=== PATIENT | male | born 1960 | race Caucasian/White ===

== ENCOUNTER 2018-06-15 20:35 | Emergency (ER) | payer OTHER, BC ==
--- NOTE | 2018-06-15 22:25 | ER Document Report ---
ED Medical Screen (RME) - General Chief Complaint: Neck Pain >24hrs old Stated Complaint: LEFT NECK AND SHOULDER PAIN Time Seen by Provider: 06/15/18 22:23 Mode of Arrival: Ambulatory Information source: Patient Notes: 57-year-old male presented ED for complaint of pain to his left neck shoulder radiating down his left arm. He states he injured his shoulder on June 08 has been to his primary care doctor who put him on hydrocodone and Valium. He states he took his hydrocodone last at 3 PM and his volume lasted 3 PM. He is on chronic pain management of tramadol. He states his primary care is also put him on prednisone. Patient and states that the pain is getting much worse and that he thinks he needs a MRI. He states he has a previous torn rotator cuff on this side that was surgically repaired but they were not able to repair some of the muscles that were performed. He is favoring the shoulder is not moving the shoulder a lot. Patient is alert and oriented respirations regular and unlabored speaking with full sentences and walk with a even steady gait. I have greeted and performed a rapid initial assessment of this patient. A comprehensive ED assessment and evaluation of the patient, analysis of test results and completion of medical decision making process will be conducted by an additional ED providers. TRAVEL OUTSIDE OF THE [place] IN LAST 30 DAYS: No - Related Data Allergies/Adverse Reactions: morphine Adverse Reaction (Verified 06/15/18 20:37) Physical Exam - Vital signs Vitals: Temp Pulse Resp BP Pulse Ox 97.7 F 81 20 157/84 H 95 06/15/18 21:00 06/15/18 21:00 06/15/18 21:00 06/15/18 21:00 06/15/18 21:00 Course - Vital Signs Vital signs: Temp Pulse Resp BP Pulse Ox 97.7 F 81 20 157/84 H 95 06/15/18 21:00 06/15/18 21:00 06/15/18 21:00 06/15/18 21:00 06/15/18 21:00
[2018-06-16] MEDS ORDERED: LIDOCAINE 5% (700 MG) TRANSDERMAL ADH..PATCH TP ONE (01:44)
[2018-06-16] MEDS ORDERED: KETOROLAC TROMETHAMINE 60 MG/2 ML SDV IM ONE (01:44)
[2018-06-16] MEDS ORDERED: FENTANYL CITRATE INJ/PF 100 MCG/2 ML AMPUL IM ONE (01:44)
--- NOTE | 2018-06-16 01:51 | ER Document Report ---
ED General - General Chief Complaint: Neck Pain >24hrs old Stated Complaint: LEFT NECK AND SHOULDER PAIN Time Seen by Provider: 06/15/18 22:23 Mode of Arrival: Ambulatory Notes: Patient is a 57 year old male who presents with approximately 4-5 days of left shoulder pain and left neck pain. He describes the pain as being a severe, constant, throbbing pain to his left trapezius, left shoulder radiating shooting , shocking pain down his left upper extremity. The patient reports that these symptoms started gradually and have been worsening since that time. He was seen by his primary care doctor, started on steroids, Valium and [place] and notes that this has not provided any relief. He has a history of a prior partial rotator cuff tear with associated surgery in the past to the left shoulder. He is not yet scheduled to see an orthopedic surgeon. Nothing is new or different about his pain today that prompted a visit to the emergency department other than that it was so intense he could not sleep. He notes that he has had paresthesias of his left upper extremity but no associated loss of sensation or weakness. TRAVEL OUTSIDE OF THE [place] IN LAST 30 DAYS: No - Related Data Allergies/Adverse Reactions: morphine Adverse Reaction (Verified 06/15/18 20:37) Past Medical History - General Information source: Patient - Social History Smoking Status: Never Smoker Frequency of alcohol use: None Drug Abuse: None Lives with: Spouse/Significant other Family History: Reviewed & Not Pertinent Patient has suicidal ideation: No Patient has homicidal ideation: No Renal/ Medical History: Denies: Hx Peritoneal Dialysis Review of Systems - Review of Systems Notes: Constitutional: Negative for fever. HENT: Negative for sore throat. Eyes: Negative for visual changes. Cardiovascular: Negative for chest pain. Respiratory: Negative for shortness of breath. Gastrointestinal: Negative for abdominal pain, vomiting or diarrhea. Genitourinary: Negative for dysuria. Musculoskeletal: Positive for left shoulder pain and left neck pain Skin: Negative for rash. Neurological: Negative for headaches, positive for paresthesias of the left upper extremity 10 point ROS negative except as marked above and in HPI. Physical Exam - Vital signs Vitals: Temp Pulse Resp BP Pulse Ox 97.7 F 81 20 157/84 H 95 06/15/18 21:00 06/15/18 21:00 06/15/18 21:00 06/15/18 21:00 06/15/18 21:00 Interpretation: Hypertensive Notes: PHYSICAL EXAMINATION: GENERAL: Appears uncomfortable but in no acute distress HEAD: Atraumatic, normocephalic. EYES: Pupils equal round and reactive to light, extraocular movements intact, sclera anicteric, conjunctiva are normal. ENT: nares patent, oropharynx clear without exudates. Moderately dry mucous membranes. NECK: Normal range of motion, supple without lymphadenopathy LUNGS: Breath sounds clear to auscultation bilaterally and equal. No wheezes rales or rhonchi. HEART: Regular rate and rhythm without murmurs ABDOMEN: Soft, nontender, normoactive bowel sounds. No guarding, no rebound. No masses appreciated. EXTREMITIES: Unable to abduct the arm past 45 on the left. No pitting or edema. No cyanosis. No deformity or swelling to the left shoulder NEUROLOGICAL: No focal neurological deficits. Moves all extremities spontaneously and on command. RMU motor and sensory distribution intact bilaterally PSYCH: Normal mood, normal affect. SKIN: Warm, Dry, normal turgor, no rashes or lesions noted. Course - Re-evaluation Re-evalutation: 06/16/18 01:50 Patient presents with 4 days of severe left shoulder pain with radicular symptoms of the left upper extremity. Clinical history and exam are most consistent with likely rotator cuff injury with an associated inflammation of the brachial plexus. RMU motor and sensory distribution are intact. No midline cervical spine tenderness, step-offs or deformities and no new injury to the cervical spine. Patient is here because his pain is so severe that he cannot sleep. I have emphasized with the patient that he needs to follow-up with orthopedic surgery for further definitive management. He has been started on gabapentin for pain control as well as limited number of oxycodone as he apparently has a severe allergy to morphine and is already on NSAID therapy. At this time will discharge with return precautions and follow-up recommendations. Verbal discharge instructions given a the bedside and opportunity for questions given. Medication warnings reviewed. Patient is in agreement with this plan and has verbalized understanding of return precautions and the need for primary care follow-up in the next 24-72 hours. - Vital Signs Vital signs: Temp Pulse Resp BP Pulse Ox 98.5 F 88 17 148/72 H 98 06/16/18 02:19 06/16/18 02:19 06/16/18 02:19 06/16/18 02:19 06/16/18 02:19 Discharge - Discharge Clinical Impression: Neck pain on left side Left shoulder pain Qualifiers: Chronicity: acute Qualified Code(s): M25.512 - Pain in left shoulder Condition: Good Disposition: HOME, SELF-CARE Additional Instructions: Your symptoms are most consistent with a ligamentous injury of you left shoulder versus a cervical nerve root impingement. Take Tylenol 1000 mg every 6 hours. Take gabapentin 300 mg 3 times daily. Use the oxycodone for pain not controlled by these measures. Please follow-up with the orthopedic doctor at your earliest ability for further evaluation of this ongoing pain. Return here if you develop worsening pain, fever greater than 100.4F, develop chest pain, pass out, or have any other symptoms that are worrisome to you. Prescriptions: Oxycodone HCl [Oxycontin Ir 5 Mg Tablet] 1 tab PO Q6HP PRN #10 tablet PRN Reason: For Pain Gabapentin 300 mg PO TID #90 capsule Referrals: DANITA MARTINEZ MD [Primary Care Provider] - Follow up as needed
[2018-06-16 02:20] VITALS: BP 148/72
== END 2018-06-16 02:20 | disposition home or self-care (01) ==
LOC: ER 20:35
DX: M54.2 Cervicalgia (principal); M25.512 Pain in left shoulder; Z88.6 Allergy status to analgesic agent
CPT/HCPCS: 99283; 96372; J1885; J3010

== ENCOUNTER → 2018-06-27 | Outpatient (CLI) | payer BC, OTHER ==
--- NOTE | 2018-06-28 09:03 | RADIOLOGY REPORT (SQ) ---
EXAM DESCRIPTION: MRI LT UPPER JOINT WITHOUT COMPLETED DATE/TIME: 06/27/2018 9:03 pm REASON FOR STUDY: M25.512 PAIN IN LEFT SHOULDER M25.512 PAIN IN LEFT SHOULDER COMPARISON: MRI brachials plexus same date TECHNIQUE: Left shoulder images acquired and stored on PACS. Multiplanar imaging to include fat sens itive sequences such as T1, water sensitive sequences such as FST2/STIR, cartilage sensitive sequence s such as FSPD/gradient-echo sequences. LIMITATIONS: None. FINDINGS: BONE MARROW AND CORTEX: Few small subcortical cysts are present along the left humeral hea d greater tuberosity. No marrow signal abnormalities worrisome for occult fracture or aggressive mar row replacement process JOINT OR BURSAL EFFUSION: No glenohumeral joint effusion. Trace fluid in the subacromial/subdeltoid bursa GLENO-HUMERAL ARTICULATION: There is minimal ferromagnetic artifact from remote prior surgery on grad ient echo images. Articular cartilage mildly band. No bulky bony spurring at the glenohumeral joint ACROMION AND AC JOINT: Type 1 acromion with moderate acromioclavicular joint hypertrophy and bony sp urring, very mild narrowing of the subacromial space. Trace subacromial/subdeltoid bursal fluid. ROTATOR CUFF AND INTERVAL: Mild tendinopathy of the distal supra and infraspinatus tendons at the gre ater tuberosity attachment. Subscapularis is intact. Rotator interval grossly intact. No rotator interval tear. No rotator interval thickening to suggest adhesive capsulitis. LABRUM AND BICEPS LABRAL COMPLEX: Intra-articular long head biceps tendon is normal thickness, mild increased signal from tendinopathy. There is high signal along the superior labrum and anterior lab rum likely from superior labral tear at the long head biceps tendon insertion. No paralabral cysts a re present. REMAINDER OF LABRUM AND IGHL : No gross tear or paralabral cyst formation. Labral evaluation is less than optimal without joint distention. No thickening of IGHL to suggest adhesive capsulitis. PERIARTICULAR AND ADJACENT SOFT TISSUES: No masses or abnormal nodes. OTHER: No other significant finding. IMPRESSION: Mild distal supra and infraspinatus tendinopathy at the distal attachment Small superior labral tear extending anteriorly without paralabral cyst Mild acromioclavicular joint hypertrophy TECHNICAL DOCUMENTATION: JOB ID: [id number] [employer]- All Rights Reserved Reading location - IP/workstation name: [email or web address]
--- NOTE | 2018-06-28 13:35 | RADIOLOGY REPORT (SQ) ---
EXAM DESCRIPTION: MRI CHEST COMBO COMPLETED DATE/TIME: 06/27/2018 9:43 pm REASON FOR STUDY: M25.512 M25.512 PAIN IN LEFT SHOULDER COMPARISON: MRI of the left shoulder same date TECHNIQUE: PROCEDURE: T1 pre and post gadolinium, T2 fat sat weight sequences with attention to the brachial plexus. CONTRAST TYPE AND DOSE: 20 mL Prohance. RENAL FUNCTION: GFR > 60. LIMITATIONS: None. FINDINGS: No abnormal enhancement or masses along the cervical cord, cervical nerve roots, or brachi als plexus. No soft tissues masses or adenopathy in the field of view There is degenerative disc change throughout the cervical spine with multilevel disc space loss of he ight and in disc bulging with facet and uncovertebral hypertrophy. At C3-4, moderate bilateral foraminal narrowing is present right greater than left. Broad diffuse po sterior disc bulging causes of at least borderline central canal stenosis. Mild ventral cord flatten ing. At C4-5, minimal bilateral foraminal narrowing from facet and uncovertebral hypertrophy is present. At C5-6, broad diffuse posterior disc bulging right greater than left is present causing borderline c entral canal stenosis, high-grade right and moderate left foraminal narrowing. At C6-7, broad diffuse posterior disc bulge and bony spurring is present without central stenosis. H igh-grade bilateral foraminal narrowing is present. At C7-T1, a small right paracentral disc protrusion/herniation is present. This finding along with b road diffuse posterior disc bulge and facet and ligament hypertrophy causes mild central canal stenos is. High-grade bilateral foraminal narrowing. IMPRESSION: NO EVIDENCE OF BRACHIALS PLEXUS MASS OR IMPINGEMENT. TECHNICAL DOCUMENTATION: JOB ID: [id number] [employer]- All Rights Reserved Reading location - IP/workstation name: [facility] [email or web address]
== END ==
LOC: RAD 20:04
PROVIDERS: ATTEND Internal Medicine
DX: M25.512 Pain in left shoulder (principal); S46.812A Strain of other muscles, fascia and tendons at shoulder and upper arm level, left arm, initial encounter; X58.XXXA Exposure to other specified factors, initial encounter
CPT/HCPCS: 82565; 73221; 71552; A9576

== ENCOUNTER → 2018-09-18 | Day surgery (SDC) | payer BC, OTHER ==
--- NOTE | 2018-09-18 14:58 | RADIOLOGY REPORT (SQ) ---
EXAM DESCRIPTION: ARTHRO SHOULDER INJECTION; FLUORO/NEEDLE PLACEMENT COMPLETED DATE/TIME: 09/18/2018 1:18 pm REASON FOR STUDY: M75.122 COMPLETE ROTATR-CUFF TEAR/RUPTR OF LEFT SHOULDER, NOT TRAUMA M75.122 COMP LETE ROTATR-CUFF TEAR/RUPTR OF LEFT SHOULDER, NO COMPARISON: MRI left shoulder 06/27/2018 FLUOROSCOPY TIME: 9 seconds 2 digital fluoroscopic radiographs images saved to PACS. LIMITATIONS: None. PROCEDURE: Procedure, risks, benefits and alternatives explained to patient who then gave written co nsent. The posterior left shoulder was marked and a time out was called for correct procedure verific ation. Posterior entry site marked using fluoroscopic guidance. Shoulder prepped and draped using s terile technique. Local anesthesia achieved using 1% lidocaine injection. Hypodermic needle introdu julien into the joint space under direct fluoroscopic visualization. Non-ionic contrast instilled to con firm intra-articular position. Dilute gadolinium solution then injected. Needle removed and entry si te covered with sterile bandage. No immediate complications noted. TECHNIQUE: Digital images acquired during fluoroscopy and stored on PACS. Patient immediately take n to the MR suite for additional imaging. INJECTION LOCATION: Posterior left glenohumeral joint CONTRAST TYPE AND AMOUNT: 1 mL of Isovue-300 was injected to confirm intra-articular needle placement , followed by 10 mL of dilute Dotarem/Saline mixture. IMPRESSION: SUCCESSFUL NEEDLE PLACEMENT AND INJECTION FOR LEFT SHOULDER MR ARTHROGRAM USING POSTERIO R APPROACH. COMMENT: Quality ID 145: Final reports for procedures using fluoroscopy that document radiation exp osure indices, or exposure time and number of fluorographic images (if radiation exposure indices are not available) TECHNICAL DOCUMENTATION: JOB ID: [id number] [employer]- All Rights Reserved Reading location - IP/workstation name: [email or web address]
--- NOTE | 2018-09-18 14:58 | RADIOLOGY REPORT (SQ) ---
EXAM DESCRIPTION: ARTHRO SHOULDER INJECTION; FLUORO/NEEDLE PLACEMENT COMPLETED DATE/TIME: 09/18/2018 1:18 pm REASON FOR STUDY: M75.122 COMPLETE ROTATR-CUFF TEAR/RUPTR OF LEFT SHOULDER, NOT TRAUMA M75.122 COMP LETE ROTATR-CUFF TEAR/RUPTR OF LEFT SHOULDER, NO COMPARISON: MRI left shoulder 06/27/2018 FLUOROSCOPY TIME: 9 seconds 2 digital fluoroscopic radiographs images saved to PACS. LIMITATIONS: None. PROCEDURE: Procedure, risks, benefits and alternatives explained to patient who then gave written co nsent. The posterior left shoulder was marked and a time out was called for correct procedure verific ation. Posterior entry site marked using fluoroscopic guidance. Shoulder prepped and draped using s terile technique. Local anesthesia achieved using 1% lidocaine injection. Hypodermic needle introdu julien into the joint space under direct fluoroscopic visualization. Non-ionic contrast instilled to con firm intra-articular position. Dilute gadolinium solution then injected. Needle removed and entry si te covered with sterile bandage. No immediate complications noted. TECHNIQUE: Digital images acquired during fluoroscopy and stored on PACS. Patient immediately take n to the MR suite for additional imaging. INJECTION LOCATION: Posterior left glenohumeral joint CONTRAST TYPE AND AMOUNT: 1 mL of Isovue-300 was injected to confirm intra-articular needle placement , followed by 10 mL of dilute Dotarem/Saline mixture. IMPRESSION: SUCCESSFUL NEEDLE PLACEMENT AND INJECTION FOR LEFT SHOULDER MR ARTHROGRAM USING POSTERIO R APPROACH. COMMENT: Quality ID 145: Final reports for procedures using fluoroscopy that document radiation exp osure indices, or exposure time and number of fluorographic images (if radiation exposure indices are not available) TECHNICAL DOCUMENTATION: JOB ID: [id number] [email or web address]- All Rights Reserved Reading location - IP/workstation name: [email or web address]
--- NOTE | 2018-09-19 12:28 | RADIOLOGY REPORT (SQ) ---
EXAM DESCRIPTION: MRI LT UPPER JOINT WITH COMPLETED DATE/TIME: 09/18/2018 1:52 pm REASON FOR STUDY: M75.122 COMPLETE ROTATR-CUFF TEAR/RUPTR OF LEFT SHOULDER, NOT TRAUMA M75.122 COMP LETE ROTATR-CUFF TEAR/RUPTR OF LEFT SHOULDER, NO COMPARISON: 06/27/2018 left shoulder MRI TECHNIQUE: Left shoulder images acquired and stored on PACS. Oblique coronal, oblique sagittal, and axial imaging to include fat sensitive sequences as T1, water sensitive sequences as FST2/STIR, and c ontrast sensitive sequences as FST1. LIMITATIONS: None. FINDINGS: JOINT DISTENTION: Adequate distention for interpretation. No leakage of intra-articular c ontrast into the subacromial/subdeltoid bursa BONE MARROW AND CORTEX: Small subcortical cysts along the left humeral head greater tuberosity unchan ged. AC JOINT: Type 1 acromion with mild acromioclavicular joint bony spurring and narrowing of the subacr omial space best shown on sagittal image 10. GLENOHUMERAL JOINT: No subluxation or dislocation. No focal chondral defects or reactive bone changes . ROTATOR CUFF: High-grade partial thickness undersurface tear distal supraspinatus tendon at the great er tuberosity attachment best shown on coronal image 11. Tendinopathy distal infraspinatus tendon. Subscapularis is intact. LABRUM AND BICEPS LABRAL COMPLEX: Normal signal in the rotator interval without tear of the superior glenohumeral ligament. Superior labrum, intra-articular long head biceps intact. Distal biceps in no rmal anatomic location in bicipital groove. No paralabral cysts. INFERIOR LABRAL COMPLEX: Bony glenoid and labrum intact. IGHL intact without thickening or tear. No p aralabral cysts. ADJACENT SOFT TISSUES: No masses or nodes. OTHER: No other significant finding. IMPRESSION: No MR evidence of superior labral tear High-grade partial-thickness undersurface tear distal supraspinatus tendon. Mild tendinopathy distal infraspinatus tendon TECHNICAL DOCUMENTATION: JOB ID: [id number] [employer]- All Rights Reserved Reading location - IP/workstation name: [email or web address]
== END ==
LOC: RAD 12:35 → EDSTATUS 13:00
PROVIDERS: ATTEND Orthopaedic Surgery
DX: M75.122 Complete rotator cuff tear or rupture of left shoulder, not specified as traumatic (principal)
CPT/HCPCS: 73222; 77002; 23350; A9576

== ENCOUNTER → 2018-10-22 | Outpatient (CLI) | payer BC, OTHER ==
--- NOTE | 2018-10-22 14:34 | RADIOLOGY REPORT (SQ) ---
EXAM DESCRIPTION: CHEST PA/LATERAL COMPLETED DATE/TIME: 10/22/2018 2:25 pm REASON FOR STUDY: PRE-OP Z01.818 ENCOUNTER FOR OTHER PREPROCEDURAL EXAMINATION COMPARISON: None. NUMBER OF VIEWS: Two view. TECHNIQUE: Frontal and lateral radiographic views of the chest acquired. LIMITATIONS: None. FINDINGS: LUNGS AND PLEURA: Low lung volumes. No opacities, masses or pneumothorax. No pleural eff usion. MEDIASTINUM AND HILAR STRUCTURES: No masses. No contour abnormalities. HEART AND VASCULAR STRUCTURES: Heart normal in size and contour. No evidence for failure. BONES: No acute findings. HARDWARE: None in the chest. OTHER: No other significant finding. IMPRESSION: LOW LUNG VOLUMES. NO SIGNIFICANT RADIOGRAPHIC FINDING IN THE CHEST. TECHNICAL DOCUMENTATION: JOB ID: [id number] [email or web address]- All Rights Reserved Reading location - IP/workstation name: [email or web address]
[2018-10-22 15:18] LABS: ABSOLUTE BASOPHILS # (AUTO) 0.1 10^3/uL (0.0-0.2); ABSOLUTE EOSINOPHILS # (AUTO) 0.1 10^3/uL (0.0-0.6); ABSOLUTE LYMPHOCYTES (AUTO) 1.9 10^3/uL (0.5-4.7); ABSOLUTE MONOCYTES (AUTO) 0.7 10^3/uL (0.1-1.4); ABSOLUTE NEUT (AUTO) 4.1 10^3/uL (1.7-8.2); EOSINOPHILS % (AUTO) 1.4 % (0-6); HEMATOCRIT 44.3 % (37.9-51.0); HEMOGLOBIN 15.3 g/dL (13.5-17.0); LYMPHOCYTES % (AUTO) 27.6 % (13-45); MEAN CORPUSCULAR HEMOGLOBIN 29.9 pg (27.0-33.4); MEAN CORPUSCULAR HGB CONC 34.5 g/dL (32.0-36.0); MEAN CORPUSCULAR VOLUME 87 fl (80-97); MONOCYTES % (AUTO) 10.3 % (3-13); PLATELET COUNT 220 10^3/uL (150-450); RED CELL DISTRIBUTION WIDTH 12.8 % (11.5-14.0); SEGMENTED NEUTROPHILS % (AUTO) 59.7 % (42-78); TOTAL CELLS COUNTED % (AUTO) 100 %; WHITE BLOOD COUNT 6.8 10^3/uL (4.0-10.5)
[2018-10-22 15:39] LABS: ANION GAP 11 (5-19); BLOOD UREA NITROGEN 15 mg/dL (7-20); CALCIUM 9.6 mg/dL (8.4-10.2); CARBON DIOXIDE 28 mmol/L (22-30); CHLORIDE 102 mmol/L (98-107); GLUCOSE 91 mg/dL (75-110); POTASSIUM 4.6 mmol/L (3.6-5.0); SODIUM 141.1 mmol/L (137-145)
--- NOTE | 2018-10-22 18:31 | EKG REPORT ---
SEVERITY:- ABNORMAL ECG - SINUS RHYTHM FIRST DEGREE AVB : Confirmed by: Roosevelt Eastman MD 22-Oct-2018 18:30:43
== END ==
LOC: OD 13:55
PROVIDERS: ATTEND Orthopaedic Surgery
DX: Z01.810 Encounter for preprocedural cardiovascular examination (principal); Z01.812 Encounter for preprocedural laboratory examination; Z01.818 Encounter for other preprocedural examination
CPT/HCPCS: 36415; 71046; 80048; 85025; 93005; 93010

== ENCOUNTER 2019-01-01 01:31 | Emergency (ER) | payer BC, OTHER ==
[2019-01-01 01:51] VITALS: BP 138/76
[2019-01-01 07:25] LABS: ABSOLUTE BASOPHILS # (AUTO) 0.1 10^3/uL (0.0-0.2); ABSOLUTE EOSINOPHILS # (AUTO) 0.1 10^3/uL (0.0-0.6); ABSOLUTE LYMPHOCYTES (AUTO) 1.3 10^3/uL (0.5-4.7); ABSOLUTE MONOCYTES (AUTO) 0.6 10^3/uL (0.1-1.4); ABSOLUTE NEUT (AUTO) 4.3 10^3/uL (1.7-8.2); BASOPHILS % (AUTO) 0.9 % (0-2); EOSINOPHILS % (AUTO) 1.6 % (0-6); HEMATOCRIT 44.9 % (37.9-51.0); HEMOGLOBIN 15.9 g/dL (13.5-17.0); MEAN CORPUSCULAR HGB CONC 35.3 g/dL (32.0-36.0); MEAN CORPUSCULAR VOLUME 85 fl (80-97); MONOCYTES % (AUTO) 9.7 % (3-13); PLATELET COUNT 254 10^3/uL (150-450); RED BLOOD COUNT 5.28 10^6/uL (4.35-5.55); RED CELL DISTRIBUTION WIDTH 13.7 % (11.5-14.0); SEGMENTED NEUTROPHILS % (AUTO) 66.8 % (42-78); TOTAL CELLS COUNTED % (AUTO) 100 %; WHITE BLOOD COUNT 6.4 10^3/uL (4.0-10.5)
[2019-01-01 07:32] LABS: ALANINE AMINOTRANSFERASE 31 U/L (21-72); ALKALINE PHOSPHATASE 93 U/L (38-126); ANION GAP 12 (5-19); ASPARTATE AMINO TRANSFERASE 29 U/L (17-59); BILIRUBIN,DIRECT 0.2 mg/dL (0.0-0.4); BILIRUBIN,TOTAL 0.5 mg/dL (0.2-1.3); BLOOD UREA NITROGEN 13 mg/dL (7-20); CALCIUM 9.7 mg/dL (8.4-10.2); CARBON DIOXIDE 25 mmol/L (22-30); CHLORIDE 106 mmol/L (98-107); GLUCOSE 111 mg/dL (75-110); LIPASE 72.3 U/L (23-300); POTASSIUM 4.8 mmol/L (3.6-5.0); SODIUM 142.8 mmol/L (137-145); TOTAL PROTEIN 7.9 g/dL (6.3-8.2)
[2019-01-01] MEDS ORDERED: NORMAL SALINE 1000 ML 1,000 ML IV ONE (07:45)
[2019-01-01 09:05] LABS: APPEARANCE,URINE CLEAR; BILIRUBIN,URINE NEGATIVE (NEGATIVE); COLOR,URINE YELLOW; GLUCOSE, URINE NEGATIVE (NEGATIVE); KETONES,URINE NEGATIVE (NEGATIVE); LEUKOCYTE ESTERASE,URINE NEGATIVE (NEGATIVE); NITRITE,URINE NEGATIVE (NEGATIVE); PROTEIN,URINE NEGATIVE (NEGATIVE); URINE SPECIFIC GRAVITY 1.015; UROBILINOGEN,URINE NEGATIVE mg/dL (<2.0)
--- NOTE | 2019-01-01 10:20 | RADIOLOGY REPORT (SQ) ---
EXAM DESCRIPTION: CT ABD/PELVIS WITH IV ONLY COMPLETED DATE/TIME: 01/01/2019 10:00 am REASON FOR STUDY: LLQ abd pain COMPARISON: None. TECHNIQUE: CT scan of the abdomen and pelvis performed using helical scanning technique with dynamic intravenous contrast injection. No oral contrast. Images reviewed with lung, soft tissue, and bone windows. Reconstructed coronal and sagittal MPR images reviewed. Delayed images for evaluation of the urinary system also acquired. All images stored on PACS. All CT scanners at this facility use dose modulation, iterative reconstruction, and/or weight based d osing when appropriate to reduce radiation dose to as low as reasonably achievable (ALARA). [facility]: Dose Right [facility]: CareDose [facility]: Dose Right [facility]: Teradose 4D [facility]: [employer] CONTRAST TYPE AND DOSE: contrast/concentration: Isovue 350.00 mg/ml; Total Contrast Delivered: 100.0 ml; Total Saline Delivered: 72.0 ml RENAL FUNCTION: GFR > 60. RADIATION DOSE: CT Rad equipment meets quality standard of care and radiation dose reduction techniq ues were employed. CTDIvol: 18.9 - 20.4 mGy. DLP: 2270 mGy-cm.. LIMITATIONS: None. FINDINGS: LOWER CHEST: No significant findings. No nodules or infiltrates. LIVER: Normal size. No masses. No dilated ducts. SPLEEN: Normal size. No focal lesions. PANCREAS: No masses. No significant calcifications. No adjacent inflammation or peripancreatic fluid collections. Pancreatic duct not dilated. GALLBLADDER: No identified stones by CT criteria. No inflammatory changes to suggest cholecystitis. ADRENAL GLANDS: No significant masses or asymmetry. RIGHT KIDNEY AND URETER: No solid masses. No significant calcifications. No hydronephrosis or hyd roureter. LEFT KIDNEY AND URETER: No solid masses. No significant calcifications. No hydronephrosis or hydr oureter. AORTA AND VESSELS: No aneurysm. No dissection. Renal arteries, SMA, celiac without stenosis. RETROPERITONEUM: No retroperitoneal adenopathy, hemorrhage or masses. BOWEL AND PERITONEAL CAVITY: No masses or inflammatory changes. No free fluid or peritoneal masses. There is scattered colonic diverticulosis with minimal stranding about the proximal sigmoid colon (e. g. series 3, image 49). APPENDIX: Normal. PELVIS: No mass. No free fluid. Normal bladder. ABDOMINAL WALL: No masses. No hernias. BONES: No significant or acute findings. OTHER: No other significant finding. IMPRESSION: There is scattered colonic diverticulosis with minimal stranding about the proximal sigm oid colon, findings which may reflect mild diverticulitis. Follow-up imaging can be considered as in dicated by clinical signs and symptoms to evaluate for interval development. TECHNICAL DOCUMENTATION: JOB ID: [id number] Quality ID # [id number]: Final reports with documentation of one or more dose reduction techniques (e.g., Au tomated exposure control, adjustment of the mA and/or kV according to patient size, use of iterative reconstruction technique) 2010 [employer]- All Rights Reserved Reading location - IP/workstation name: [email or web address]
[2019-01-01] MEDS ORDERED: CIPROFLOXACIN HCL 500 MG TABLET PO ONE (10:49)
[2019-01-01] MEDS ORDERED: METRONIDAZOLE 500 MG TABLET PO ONE (10:49)
--- NOTE | 2019-01-01 14:08 | ER Document Report ---
Entered by RYLAN ARNOLD SCRIBE 01/01/19 0707 Acting as scribe for:JESSICA FANG MD ED GI/ - General Chief Complaint: Abdominal Pain Stated Complaint: ABDOMINAL PAIN/NAUSEA Time Seen by Provider: 01/01/19 06:55 Primary Care Provider: DANITA MARTINEZ MD [Primary Care Provider] - Follow up as needed Information source: Patient Notes: 58-year-old male who presents to the emergency department today with complaints of left lower quadrant abdominal pain. Patient states that his symptoms began around midnight last night and it feels like a "pulled muscle". Patient states he does not believe it is a pulled muscle but that is the "only way he knows how to describe it". Patient states the pain does not radiate into his testicle. Patient denies a history of kidney stones. TRAVEL OUTSIDE OF THE [place] IN LAST 30 DAYS: No - Related Data Allergies/Adverse Reactions: ticagrelor [From Brilinta] Allergy (Verified 01/01/19 01:49) morphine Adverse Reaction (Verified 06/15/18 20:37) Past Medical History - General Information source: Patient - Social History Smoking Status: Former Smoker Cigarette use (# per day): No Frequency of alcohol use: None Drug Abuse: None Lives with: Family Family History: Reviewed & Not Pertinent Patient has suicidal ideation: No Patient has homicidal ideation: No - Past Medical History Cardiac Medical History: Reports: Hx Heart Attack - November 2018, Hx Hypercholesterolemia, Hx Hypertension Endocrine Medical History: Reports: Hx Diabetes Mellitus Type 2 Past Surgical History: Reports: Hx Cardiac Surgery - 2 stents, Other - Left inguinal hernia repair 11/16/2017 Review of Systems - Review of Systems Constitutional: No symptoms reported EENT: No symptoms reported Cardiovascular: No symptoms reported Respiratory: No symptoms reported Gastrointestinal: See HPI, Abdominal pain Genitourinary: No symptoms reported Male Genitourinary: denies: Testicular pain Musculoskeletal: No symptoms reported Skin: No symptoms reported Hematologic/Lymphatic: No symptoms reported Neurological/Psychological: No symptoms reported -: Yes All other systems reviewed and negative Physical Exam - Vital signs Vitals: Temp Pulse Resp BP Pulse Ox 97.6 F 75 16 138/76 H 97 01/01/19 01:47 01/01/19 01:47 01/01/19 01:47 01/01/19 01:47 01/01/19 01:47 - Notes Notes: Physical Exam: General: Alert, appears well. HEENT: Normocephalic. Atraumatic. PERRL. Extraocular movements intact. Oropharynx clear. Neck: Supple. Non-tender. Respiratory: No respiratory distress. Clear and equal breath sounds bilaterally. Cardiovascular: Regular rate and rhythm. Abdominal: Left lower quadrant tenderness with palpation.. No distension. Normal Bowel Sounds. Back: Left CVA tenderness with percussion. No deformity or step off. Extremities: Moves all four extremities. Upper extremities: Normal inspection. Normal ROM. Lower extremities: Normal inspection. No edema. Normal ROM. Neurological: Normal cognition. AAOx4. Normal speech. Psychological: Normal affect. Normal Mood. Skin: Warm. Dry. Normal color. Course - Vital Signs Vital signs: Temp Pulse Resp BP Pulse Ox 97.6 F 75 16 138/76 H 97 01/01/19 01:47 01/01/19 01:47 01/01/19 01:47 01/01/19 01:47 01/01/19 01:47 - Laboratory Result Diagrams: 01/01/19 07:00 01/01/19 07:00 Laboratory results interpreted by me: 01/01/19 07:00 Glucose 111 H - Diagnostic Test Radiology reviewed: Image reviewed, Reports reviewed - Mild sigmoid diverticulitis Discharge - Discharge Clinical Impression: Diverticulitis of sigmoid colon Condition: Stable Disposition: HOME, SELF-CARE Additional Instructions: Diverticulitis: You have been diagnosed as having diverticulitis. This is an inflammation of a small pouch attached to the colon, called a diverticulum. Many of these small pouches can form on the colon as you get older. They are often caused by constipation. When inflamed or infected, symptoms arise -- usually abdominal pain, constipation or diarrhea, fever, and blood in the stool. Severe diverticulitis may require hospitalization. More mild cases are usually treated with antibiotics and clear liquid diet. As you improve, a diet low in residue (one which forms little stool) is prescribed. When you are better, you should eat a high-fiber diet. Stool softeners (like Metamucil) are usually recommended. Call the doctor or go to the hospital if there is increasing pain, vomiti ng, high fever, large amounts of blood passed, or if bowel movements cease. Take the medications as prescribed. Drink plenty of fluids. Stay on a clear liquid diet for the next few days. Take Tylenol and ibuprofen for pain as needed. Follow-up with your doctor if not improving. RETURN TO THE EMERGENCY ROOM IF ANY NEW OR WORSENING SYMPTOMS. Prescriptions: Ciprofloxacin HCl [Cipro 500 mg Tablet] 500 mg PO BID #20 tablet Hydrocodone/Acetaminophen [[place] 5-325 mg Tablet] 1 tab PO Q4 PRN #12 tablet PRN Reason: Metronidazole [Flagyl 500 mg Tablet] 500 mg PO TID #30 tablet Forms: Return to Work Referrals: DANITA MARTINEZ MD [Primary Care Provider] - Follow up as needed Scribe Attestation: 01/01/19 09:06 I personally performed the services described in the documentation, reviewed and edited the documentation which was dictated to the scribe in my presence, and it accurately records my words and actions. I personally performed the services described in the documentation, reviewed and edited the documentation which was dictated to the scribe in my presence, and it accurately records my words and actions.
== END 2019-01-01 11:17 | disposition home or self-care (01) ==
LOC: ER 01:31
DX: K57.12 Diverticulitis of small intestine without perforation or abscess without bleeding (principal); R10.9 Unspecified abdominal pain; R10.32 Left lower quadrant pain; Z87.891 Personal history of nicotine dependence; E11.9 Type 2 diabetes mellitus without complications; I10 Essential (primary) hypertension
CPT/HCPCS: 36415; 74177; 80053; 81001; 83690; 85025; 99284